=== PATIENT | female | born 1965 | race Two or more races ===

== ENCOUNTER → 2020-11-21 14:40 | Outpatient (BNVA) | payer MEDICAID, SELFPAY | PROVIDERS: PCP Internal Medicine; Visit Provider Internal Medicine Cardiovascular Disease | DX: R00.2 Palpitations (principal); Z79.899 Other long term (current) drug therapy | CPT/HCPCS: 93005; 99202 ==

== ENCOUNTER → 2020-12-02 09:08 | Outpatient (REF) | payer MEDICAID, SELFPAY ==
--- NOTE | 2020-12-02 10:30 | ECG_ITS ---
Hook-up date: 2020-12-02 09:26:00 Duration: 47:59:00 Test Indications: PALPITATIONS Medications: 120275 QRS complexes 8 Ventricular ectopics which represent <1 % of total QRS comp. 7 Supraventricular ectopics which represent <1 % of total QRS comp. * Paced QRS complexs which represent % of total QRS comp. VENTRICULAR ECTOPY 6 Isolated 0 Bigeminal Cycles 1 Couplets 0 Runs 0 Beats in Runs * Beats LONGEST at * BPM at :: -- * Beats FASTEST at * BPM at :: -- SUPRAVENTRICULAR ECTOPY 7 Isolated 0 Couplets 0 Runs 0 Beats in Runs * Beats LONGEST at * BPM at :: -- * Beats FASTEST at * BPM at :: -- HEART RATES 45 MIN at 19:16:23 2020-12-03 66 AVG 99 MAX at 10:49:56 2020-12-03 LONGEST RR 1.3840 secs at 19:28:40 2020-12-02 S-T LEVELS Channel 1 - 128 mm at 09:26:00 2020-12-02 - 128 mm at 09:26:00 2020-12-02 Channel 2 - 128 mm at 09:26:00 2020-12-02 - 128 mm at 09:26:00 2020-12-02 Channel 3 - 128 mm at 02:84:51 -- - 128 mm at 02:84:51 Basic rhythm Normal sinus rhythm No long pause or profound bradycardia Baseline BBB with varying QRS duration Rare ectopics No dangerous dysrhythm periods No diary submitted Referred By: Brandon Astudillo Overread By: LAVELLE MONET MD
== END ==
LOC: HO.CARD 09:08
PROVIDERS: PCP Internal Medicine; Visit Provider Internal Medicine Cardiovascular Disease
DX: R00.2 Palpitations (principal)
CPT/HCPCS: 93226

== ENCOUNTER 2022-02-12 10:35 | Outpatient (REF) | payer MEDICAID, SELFPAY ==
[2022-02-12 13:59] LABS: MANUAL DIFF FLAG NO
[2022-02-12 14:04] LABS: Basophils Percent Auto 0.4 % (0-2); Eosinophils Absolute Auto 0.1 X10*3/uL (0.0-0.4); Eosinophils Percent Auto 1.3 % (0-4); Hematocrit 39.6 % (37.0-47.0); Imm Gran Abs Auto 0.01 X10*3/uL (0.00-0.03); Imm Gran Pct Auto 0.2 % (0.0-0.4); Lymphocytes Absolute Auto 1.9 X10*3/uL (1.2-4.9); Lymphocytes Percent Auto 40.1 % (20-40); Mean Corpuscular HGB Conc 32.8 g/dl (31.0-35.0); Mean Corpuscular Hemoglobin 30.1 pg (27.0-33.0); Mean Corpuscular Volume 91.7 fL (80.0-98.0); Mean Platelet Volume 11.7 fL (9.4-12.3); Monocytes Absolute Auto 0.4 X10*3/uL (0.1-1.2); Monocytes Percent Auto 8.6 % (2-11); Neutrophils Absolute Auto 2.3 x10*3/uL (2.0-8.3); Neutrophils Percent Auto 49.4 % (45-73); Platelet Count 203 X10*3/uL (160-400); Red Blood Count 4.32 X10*6/uL (4.20-5.50); Red Cell Distribution Width 13.2 % (11.0-16.0); White Blood Count 4.7 X10*3/uL (4.8-10.8)
[2022-02-12 14:21] LABS: Alanine Aminotransferase 25 U/L (0-31); Albumin Level 4.5 g/dL (3.5-5.0); Alkaline Phosphatase 67 U/L (39-117); Anion Gap 15 (12-20); Aspartate Amino Transferase 23 U/L (5-31); Bilirubin Total 0.5 mg/dL (0.0-1.0); Blood Urea Nitrogen 18 mg/dL (9-16); Calcium 9.4 mg/dL (8.4-10.2); Carbon Dioxide 27 mmol/L (22-29); Chloride 104 mmol/L (96-108); Cholesterol 261 mg/dL; Estimated Glomerular Filt Rate > 60; Glucose Fasting 91 mg/dL (60-99); HDL Cholesterol 72 mg/dL; LDL Cholesterol Calculated 165 mg/dl; Potassium 4.2 mmol/L (3.3-5.1); Sodium 142 mmol/L (135-145); Total Protein 7.4 g/dL (6.5-8.0); Triglycerides 124 mg/dL
[2022-02-12 14:43] LABS: Thyroid Stimulating Hormone 0.86 uIU/mL (0.32-4.0)
== END 2022-02-12 10:36 | disposition home or self-care (01) ==
LOC: HO.10HDL 10:35
PROVIDERS: Visit Provider Internal Medicine
DX: Z00.00 Encounter for general adult medical examination without abnormal findings (principal); R00.2 Palpitations; I10 Essential (primary) hypertension
CPT/HCPCS: 36415; 80053; 80061; 84443; 85025